=== PATIENT | male | born 1945 | race Caucasian/White ===

== ENCOUNTER → 2019-06-19 12:03 | Outpatient (CLI) | payer MEDICARE, BC, SELFPAY ==
--- NOTE | ~2019-06-19 | XR_ITS ---
EXAMINATION: XR chest 2V DATE: 06/19/2019 12:32 INDICATION: Shortness of breath. TECHNIQUE: Frontal and lateral views of the chest were obtained. COMPARISON: Chest 2 views 08/31/2017 FINDINGS: The chest demonstrates clear lungs without pneumonia, pleural effusion, or pneumothorax. Th e heart size is normal. There are multiple old healed left rib fractures. There is mild chronic anter ior wedging of 2 midthoracic vertebral bodies. IMPRESSION: 1. No acute cardiopulmonary disease. Reviewed, dictated and finalized at location A. [facility] NURSE
== END ==
PROVIDERS: Visit Provider Family Medicine
DX: R06.02 Shortness of breath (principal)
CPT/HCPCS: 71046

== ENCOUNTER 2019-12-03 01:32 | Emergency (ER) | payer MEDICARE, BC, SELFPAY ==
--- NOTE | ~2019-12-03 | CT_ITS ---
EXAMINATION: CT brain wo con DATE: 12/03/2019 02:57 INDICATION: Altered mental status. TECHNIQUE: Computed tomography (CT) of the head was performed without intravenous contrast. The mA wa s adjusted according to patient size. Iterative reconstruction technique was employed. The dose-lengt h product was 605.33 mGy-cm. COMPARISON: Brain MRI 01/04/2016 FINDINGS: There are scattered areas of low attenuation in the cerebral white matter. There is no intr acranial hemorrhage, acute infarction, or abnormal intracranial mass lesion. The ventricles are margarita l in size. There are likely changes of ocular lens replacement surgeries. There is mild mucosal thick ening in the paranasal sinuses. The mastoid air cells are normal. There is material in the left exter nal auditory canal, likely cerumen. IMPRESSION: 1. Mild nonspecific cerebral white matter disease, which likely represents chronic small vessel ische xavier disease. Reviewed, dictated and finalized at location B. IMPRESSION: 1. Mild nonspecific cerebral white matter disease, which likely represents associate project manager fatmata small vessel ischemic disease.
[2019-12-03 01:35] VITALS: BP 182/72; PULSE 58; RESP 16; TEMP 36.5; O2SAT 100
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
--- NOTE | 2019-12-03 01:41 | ECG_ITS ---
Measurements Intervals [place] Rate: 57 P: 19 CO: 164 QRS: 10 QRSD: 100 T: -11 QT: 432 QTc: 423 Interpretive Statements SINUS BRADYCARDIA BASELINE ARTIFACT- AVF, V4-V6 BORDERLINE ECG Electronically Signed On 12-03-2019 7:18:19 CDT by Davian Paez D.O.
[2019-12-03 01:51] LABS: Basophils Percent Auto 0.2 % (0.2-1.2); Eosinophils Absolute Auto 0.6 K/mm3 (0-0.3); Eosinophils Percent Auto 5.9 % (0-4.4); Hematocrit 40.8 % (42.0-52.0); Hemoglobin 13.2 g/dL (14.0-18.0); Immature Granulocyte Absolute 0.03 K/mm3 (0.00-0.031); Immature Granulocyte Percent A 0.3 % (0-0.5); Lymphocytes Absolute Auto 2.72 K/mm3 (0.9-3.2); Lymphocytes Percent Auto 28.7 % (18.3-44.2); Mean Corpuscular HGB Conc 32.4 g/dl (32-36); Mean Corpuscular Hemoglobin 30.7 pg (26-34); Mean Corpuscular Volume 94.9 fl (80-100); Mean Platelet Volume 10.5 fl (7.4-10.4); Monocytes Absolute Auto 1.1 K/mm3 (0.1-0.6); Monocytes Percent Auto 11.6 % (2.6-8.5); Neutrophils Absolute Auto 5.1 K/mm3 (1.3-6.7); Neutrophils Percent Auto 53.3 % (45.5-73.1); Platelet Count Result 207 k/mm3 (150-375); Red Cell Distribution Width 12.6 % (11.5-14.5); White Blood Count 9.5 K/mm3 (4.5-10.0)
[2019-12-03 01:54] LABS: Add Urine Microscopic? YES; Appearance Urine Clear (Clear); Bacteria Urine Trace /hpf; Bilirubin Urine Negative (Negative); Blood Urine 1+ (Negative); Color Urine Yellow (Yellow); Glucose Urine UA Negative (Negative); Ketones Urine Negative (Negative); Leukocyte Esterase Ur Negative LEU/UL (Negative); Mucus Urine Rare /lpf; Nitrate Urine Negative (Negative); Protein Urine Negative (Negative); Specific Grav Ur 1.018 (1.001-1.035); WBC Urine 0-3 /hpf
[2019-12-03 02:14] LABS: Alanine Aminotransferase 24 U/L (4-50); Albumin Level 3.9 g/dL (3.5-5.1); Alkaline Phosphatase 47 U/L (38-126); Anion Gap 7 mmol/L (8-16); Aspartate Amino Transferase 27 U/L (17-59); Bilirubin,Total 0.3 mg/dL (0.2-1.3); Blood Urea Nitrogen 21 mg/dL (9-20); Calcium 8.4 mg/dL (8.4-10.2); Carbon Dioxide 25 mmol/L (22-30); Chloride 105 mmol/L (98-107); Estimated CRCL calculation 66 ml/min; Estimated Glomerular Filt Rate > 60; Glucose 94 mg/dL (75-110); Sodium 137 mmol/L (137-145)
[2019-12-03 02:19] VITALS: BP 143/78; PULSE 62; RESP 19; O2SAT 98
[2019-12-03 03:05] VITALS: BP 148/63; PULSE 60; RESP 19; O2SAT 98
[2019-12-03 03:53] VITALS: BP 147/85; PULSE 72; RESP 19; TEMP 36.2; O2SAT 100
== END 2019-12-03 03:54 | disposition home or self-care (01) ==
PROVIDERS: Emergency Provider Emergency Medicine; PCP Family Medicine
DX: F03.90 Unspecified dementia, unspecified severity, without behavioral disturbance, psychotic disturbance, mood disturbance, and anxiety (principal)
CPT/HCPCS: 36415; 51701; 70450; 80053; 81001; 85025; 93005; 99284

== ENCOUNTER 2020-01-27 16:06 | Emergency (ER) | payer MEDICARE, BC, SELFPAY ==
--- NOTE | ~2020-01-27 | CT_ITS ---
EXAMINATION: CT brain wo con INDICATION: Altered mental status COMPARISON: 12/03/2019 TECHNIQUE: Standard unenhanced head CT. The dose-length product (DLP) was 605.33 mGy-cm. The mA was a djusted according to patient size. Iterative reconstruction technique was employed. FINDINGS: There is no acute intraparenchymal hemorrhage. No evidence of mass lesion. No evidence of a cute infarction. There is moderate periventricular and subcortical hypodensity probably related to sm all vessel ischemic disease. There is moderate prominence of the sulci and ventricles related to cere bral atrophy. Intracranial calcified cerebral atherosclerosis is noted. There are no extra-axial maciej ections. There is no mass effect or midline shift. Changes in the globes are likely from ocular lens surgery. There is mild mucosal thickening of the paranasal sinuses. IMPRESSION: 1. No acute intracranial abnormality. 2. Age related findings. Reviewed, dictated and finalized at location A.
[2020-01-27 16:25] VITALS: BP 137/79; PULSE 78; RESP 16; TEMP 36.2; O2SAT 100
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
[2020-01-27 17:33] LABS: Basophils Percent Auto 0.2 % (0.2-1.2); Eosinophils Absolute Auto 0.2 K/mm3 (0-0.3); Eosinophils Percent Auto 2.4 % (0-4.4); Hematocrit 43.1 % (42.0-52.0); Hemoglobin 14.4 g/dL (14.0-18.0); Immature Granulocyte Absolute 0.04 K/mm3 (0.00-0.031); Immature Granulocyte Percent A 0.4 % (0-0.5); Lymphocytes Absolute Auto 1.47 K/mm3 (0.9-3.2); Lymphocytes Percent Auto 15.2 % (18.3-44.2); Mean Corpuscular HGB Conc 33.4 g/dl (32-36); Mean Corpuscular Hemoglobin 31.6 pg (26-34); Mean Corpuscular Volume 94.5 fl (80-100); Mean Platelet Volume 10.5 fl (7.4-10.4); Monocytes Absolute Auto 0.7 K/mm3 (0.1-0.6); Monocytes Percent Auto 7.3 % (2.6-8.5); Neutrophils Absolute Auto 7.2 K/mm3 (1.3-6.7); Neutrophils Percent Auto 74.5 % (45.5-73.1); Platelet Count Result 234 k/mm3 (150-375); Red Blood Count 4.56 M/mm3 (4.6-6.20); Red Cell Distribution Width 12.2 % (11.5-14.5); White Blood Count 9.7 K/mm3 (4.5-10.0)
[2020-01-27 17:45] LABS: Alanine Aminotransferase 25 U/L (4-50); Albumin Level 4.4 g/dL (3.5-5.1); Alkaline Phosphatase 65 U/L (38-126); Anion Gap 5 mmol/L (8-16); Aspartate Amino Transferase 26 U/L (17-59); Bilirubin,Total 0.5 mg/dL (0.2-1.3); Blood Urea Nitrogen 23 mg/dL (9-20); Calcium 9.5 mg/dL (8.4-10.2); Carbon Dioxide 28 mmol/L (22-30); Chloride 104 mmol/L (98-107); Estimated Glomerular Filt Rate > 60; Glucose 111 mg/dL (75-110); Sodium 137 mmol/L (137-145)
[2020-01-27 17:47] LABS: Ethanol < 10 mg/dL (<10)
[2020-01-27 18:00] VITALS: BP 142/70; PULSE 70; RESP 16; O2SAT 98
[2020-01-27 19:14] LABS: Add Urine Microscopic? YES; Appearance Urine Clear (Clear); Bilirubin Urine Negative (Negative); Blood Urine Negative (Negative); Color Urine Yellow (Yellow); Glucose Urine UA Negative (Negative); Ketones Urine Negative (Negative); Leukocyte Esterase Ur Negative LEU/UL (Negative); Nitrate Urine Negative (Negative); Protein Urine Negative (Negative); RBC Urine 0-2 /hpf (0-2); Specific Grav Ur 1.013 (1.001-1.035); Urobilinogen Urine Negative mg/dL (<2.0); WBC Urine 0-3 /hpf
[2020-01-27 19:16] LABS: Amphetamine Screen Urine Negative (Negative); Barbiturate Screen Urine Negative (Negative); Benzodiazepines Screen Urine Negative (Negative); Cannabinoid Screen Urine Negative (Negative); Cocaine Screen Urine Negative (Negative); Methadone Screen Urine Negative (Negative); Opiate Screen Urine Negative (Negative); Phencyclidine Screen Urine Negative (Negative)
[2020-01-27 19:22] LABS: Mucus Urine Rare /lpf
--- NOTE | 2020-01-27 19:22 | PC.NURSE ---
Report received from BREN Brar. Assumed care of patient at this time.
[2020-01-27 19:31] VITALS: BP 145/67; PULSE 73; RESP 18; O2SAT 100
[2020-01-27] MEDS: LORazepam (*CRX) 1 MG TABLET PO (19:31)
[2020-01-27] MEDS: LORazepam INJ (*CRX) 2 MG/ML VIAL 1 MG IM (22:29)
--- NOTE | 2020-01-27 22:30 | PC.NURSE ---
sitter at bedside, pt is talking to an imaginary friend named Hari.
[2020-01-27 22:32] VITALS: BP 142/67; PULSE 80; RESP 18; O2SAT 99
--- NOTE | 2020-01-27 23:50 | PC.NURSE ---
crisis called and states we need to call [place] [facility] [employer] and request a pas screening at [phone]. called the number spoke with the nurse immigration associate and she said we need to call the hotline . i called the [phone] and left a massage for the case management manager immigration associate.
[2020-01-28 01:14] VITALS: BP 111/99; PULSE 69; RESP 16; TEMP 36.3; O2SAT 99
[2020-01-28 03:31] VITALS: BP 135/69; PULSE 59; RESP 18; O2SAT 100
--- NOTE | 2020-01-28 04:17 | PC.NURSE ---
Patient attempting to get out of bed. Sitter at bedside. Patient reassured and reoriented.
[2020-01-28] MEDS: LORazepam INJ (*CRX) 2 MG/ML VIAL 1 MG IM ×2 (05:11→17:08)
--- NOTE | 2020-01-28 05:48 | PC.NURSE ---
[facility] CALLED BACK WILL TRY TO SEND SOMEONE OUT TODAY. HE WILL SET UP A REFERRAL WHEN HE GETS IN THE OFFICE TODAY.
--- NOTE | 2020-01-28 06:15 | PC.NURSE ---
Patient constantly trying to get out of bed. Patient constantly reassured and reoriented. Sitter in room with patient. Patient being uncooperative with repeat VS.
[2020-01-28] MEDS: HALOPERIDOL LACTATE 5 MG/ML VIAL IM ×2 (06:37→15:20)
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
[2020-01-28 07:01] VITALS: BP 142/82; PULSE 85; RESP 20; O2SAT 97
--- NOTE | 2020-01-28 07:29 | PC.NURSE ---
Sleeping. Sitter at bedside.
--- NOTE | 2020-01-28 08:14 | PC.NURSE ---
Awake. Attempting to get out of bed. Pt referring to the boy . Sitter at bedside.
[2020-01-28 10:29] VITALS: BP 154/78; PULSE 83; RESP 20; TEMP 36.8; O2SAT 99
--- NOTE | 2020-01-28 11:03 | ECG_ITS ---
Measurements Intervals [place] Rate: 80 P: 34 NC: 162 QRS: -7 QRSD: 97 T: 6 QT: 315 QTc: 364 Interpretive Statements SINUS RHYTHM INCOMPLETE RIGHT BUNDLE BRANCH BLOCK NONSPECIFIC T-WAVE ABNORMALITY- INFERIOR LEADS BASELINE ARTIFACT- I, III, AVR, AVL, AVF, V2 BORDERLINE ECG Electronically Signed On 01-28-2020 11:59:51 CDT by Davian Paez D.O.
--- NOTE | 2020-01-28 13:57 | PC.NURSE ---
Chart faxed to [facility] in [place].
--- NOTE | 2020-01-28 14:31 | PC.NURSE ---
Chart faxed to [place].
[2020-01-28 19:04] VITALS: BP 149/69; PULSE 65; RESP 18; O2SAT 98
[2020-01-28 19:19] LABS: SARS-CoV-2 RNA PCR Negative
--- NOTE | 2020-01-28 20:16 | PC.NURSE ---
This nurse spoke with [place] construction ironworker Marta from [place], information regarding CT results and certificate was discussed due to Fax errors. Fax states ok for time of 2014 recent fax.
[2020-01-28 20:46] VITALS: BP 104/80; PULSE 88; O2SAT 100
--- NOTE | 2020-01-28 20:57 | PC.NURSE ---
This nurse spoke with nurse Denny at [facility] and report was given as well as ETA for ambulance which was stated for 2199 tonight.
== END 2020-01-28 21:33 ==
PROVIDERS: Emergency Medicine Emergency Medical Services; Emergency Provider General Practice; PCP Family Medicine
DX: F03.91 Unspecified dementia, unspecified severity, with behavioral disturbance (principal); Z79.82 Long term (current) use of aspirin; Z20.828 Contact with and (suspected) exposure to other viral communicable diseases; Z79.899 Other long term (current) drug therapy
CPT/HCPCS: 36415; 51701; 70450; 80053; 80307; 81001; 84443; 85025; 87635; 93005; 96372; 99285; A9270; C9803; J1630; J2060; U0003